=== PATIENT | female | born 1995 | race Caucasian/White ===

== ENCOUNTER 2016-07-23 17:10 | Emergency (ER) | payer OTHER ==
[2016-07-23 17:17] VITALS: RESP 16
--- NOTE | 2016-07-23 17:22 | EDPHY ---
H & P Time Seen by Provider: 07/23/16 17:21 HPI/ROS: CHIEF COMPLAINT: Right-sided chest pain. HISTORY OF PRESENT ILLNESS: The patient is a 20-year-old female who presents with chest pain. Onset chest pain 4 days ago. Pain has been constant and dull, 11/03. The cp worsened today. It is worsened with movement and deep breathing. She denies recent sickness, cough, fever, leg pain, peripheral edema. She did fly from [place] on . She denies family cardiac history. REVIEW OF SYSTEMS: A complete 10-point review of systems was performed and is negative except for those items mentioned in the HPI. Past Medical/Surgical History: PCOS, vaginal herpes. Social History: Nonsmoker, CU S Smoking Status: Never smoked Physical Exam: General Appearance: Alert, pleasant Eyes: Pupils equal and round, no conjunctival pallor or injection ENT, Mouth: Mucous membranes moist Neck: Normal inspection Respiratory: Lungs are clear to auscultation Cardiovascular: Regular rate and rhythm. Left anterior chest wall tenderness over costochondral junction. Gastrointestinal: Abdomen is soft and non-tender Neurological: A&O, nonfocal, normal gait Skin: Warm and dry, no rash Extremities: Nontender, no pedal edema Psychiatric: Mood and affect normal Constitutional: Initial Vital Signs Temperature (C) 36.6 C 07/23/16 17:15 Heart Rate 79 07/23/16 17:15 Respiratory Rate 16 07/23/16 17:15 Blood Pressure 127/79 H 07/23/16 17:15 O2 Sat (%) 98 07/23/16 17:15 O2 Delivery Mode Room Air Allergies/Adverse Reactions: No Known Allergies Allergy (Verified 07/23/16 17:14) Home Medications: Medication Instructions Recorded Metformin HCl 03/11/16 Medical Decision Making - Diagnostics EKG Interpretation: EKG interpreted by me reveals normal sinus rhythm, normal axis, normal intervals , ST segments normal. Borderline T wave abnormalities. Interpretation: borderline EKG Imaging: Chest x-ray reviewed by me reveals no acute process. ED Course/Re-evaluation: Patient presents with prolonged atypical chest pain. Stat EKG reveals no evidence ischemia or dysrhythmia. Vital signs are normal, including oxygen saturation. If D-dimer is normal, I be able to safely exclude acute pulmonary embolism. Chest x-ray and EKG obtained. An IV was established and labs ordered. This patient presents with atypical chest pain. After careful consideration and evaluation, I find no evidence of acute coronary syndrome. The patient has no risk factors for coronary disease, normal EKG and normal studies. In addition, I feel that I can safely exclude pulmonary embolism, with normal vital signs, normal oxygen saturation and normal studies. In addition there is no evidence of pneumothorax, pneumonia, aortic dissection. - Data Points Laboratory Results: Laboratory Results 07/23/16 17:33 07/23/16 17:33 Medications Given: Discontinued Medications Ketorolac Tromethamine (Toradol) 30 mg IVP EDNOW ONE Stop: 07/23/16 18:18 Last Admin: 07/23/16 18:19 Dose: 30 mg Departure - Departure Disposition: Home, Routine, Self-Care Clinical Impression: Chest wall pain Condition: Good Instructions: Chest Wall Pain (ED) Additional Instructions: Take 600mg Ibuprofen every 6-8 hours as needed for pain. Follow up with your primary care provider in the next 2-3 days if symptoms are not improving. Return to the emergency department if you experience any serious worsening of condition. Referrals: [facility],. [Clinic] - As per Instructions Report Scribed for: Kerri Samuels Report Scribed by: Amos Monroy Date of Report: 07/23/16 Time of Report: 17:22 Physician Review and Approval Statement: 07/23/16 17:22 Portions of this note were transcribed by a medical practice manager. I personally performed a history, physical exam, medical decision making, and confirmed accuracy of information the transcribed note.
--- NOTE | 2016-07-23 17:30 | CPEKG ---
Heart Rate: 76 RR Interval: 789 P-R Interval: 132 QRSD Interval: 86 QT Interval: 388 QTC Interval: 437 P Drummond: 44 QRS Drummond: 45 T Wave Drummond: 23 EKG Severity - BORDERLINE ECG - EKG Impression: SINUS RHYTHM EKG Impression: BORDERLINE T ABNORMALITIES, ANTERIOR LEADS Electronically Signed By: Kerri Samuels 23-Jul-2016 23:19:47
[2016-07-23 17:48] LABS: % IMMATURE GRANULYOCYTES 0.3 % (0.0-1.1); ABSOLUTE IMMATURE GRANULOCYTES 0.02 10^3/uL (0.00-0.10); ADD DIFF? NO; ADD MORPH? NO; ADD SCAN? NO; ATYPICAL LYMPHOCYTE FLAG 10 (0-99); FRAGMENT RBC FLAG 0 (0-99); HEMOGLOBIN 14.4 g/dL (12.6-16.3); LEFT SHIFT FLG 0 (0-99); LIPEMIA HEMOLYSIS FLAG 90 (0-99); MEAN CELL HEMOGLOBIN 32.1 pg (27.9-34.1); MEAN CELL HEMOGLOBIN CONCENTR. 34.3 g/dL (32.4-36.7); MEAN CELL VOLUME 93.5 fL (81.5-99.8); MEAN PLATELET VOLUME 10.2 fL (8.7-11.7); PLATELET CLUMPS FLAG 10 (0-99); PLATELET COUNT 255 10^3/uL (150-400); RED BLOOD CELL COUNT 4.49 10^6/uL (4.18-5.33); RED CELL DISTRIBUTION WIDTH 12.2 % (11.5-15.2)
[2016-07-23 18:04] LABS: ANION GAP 11 mEq/L (8-16); CALCIUM 9.5 mg/dL (8.5-10.4); CARBON DIOXIDE 27 mEq/l (22-31); CHLORIDE 103 mEq/L (97-110); CREATININE 0.6 mg/dL (0.6-1.0); GLOMERULAR FILTRATION RATE > 60; GLUCOSE 79 mg/dL (70-100); POTASSIUM 3.6 mEq/L (3.5-5.2); SODIUM 141 mEq/L (134-144)
[2016-07-23] MEDS ORDERED: KETOROLAC 30 MG/1 ML SDV IVP ONE (18:17)
[2016-07-23 18:36] VITALS: BP 112/76; PULSE 81; TEMP 97.5; O2SAT 96
== END 2016-07-23 18:35 | disposition home or self-care (01) ==
DX: R07.89 Other chest pain (principal)
CPT/HCPCS: 96374; J1885